=== PATIENT | male | born 1945 | race Caucasian/White ===

== ENCOUNTER 2023-03-23 12:50 | Inpatient (IN) | payer MEDICARE, OTHER ==
[~2023-03-23] VITALS: Ht 170.2 cm; Wt 67.7 kg
[2023-03-23 13:47] LABS: BASOPHILS % (AUTO) 0.3 % (0.0-2.0); EOSINOPHILS # (AUTO) 0.3 K/uL (0.0-0.7); EOSINOPHILS % (AUTO) 2.6 % (0.0-6.0); HEMATOCRIT 22 % (39-51); LYMPHOCYTES # (AUTO) 1.5 K/uL (0.8-4.8); MEAN CORPUSCULAR HEMOGLOBIN 30 PG (26.0-33.0); MEAN CORPUSCULAR HGB CONC 32 g/dl (31.0-36.0); MEAN CORPUSCULAR VOLUME 96 fL (80-96); MONOCYTES # (AUTO) 0.8 K/uL (0.1-1.30); MONOCYTES % (AUTO) 7.3 % (2.0-12.0); NEUTROPHILS # (AUTO) 8.2 K/uL (1.8-8.9); NEUTROPHILS % (AUTO) 75.8 % (43.0-81.0); PLATELET COUNT (AUTO) 398 K/uL (150-450); RED BLOOD CELL COUNT(AUTO) 2.26 MIL/uL (4.5-6.0); WHITE BLOOD COUNT (AUTO) 10.9 K/uL (4.3-11.0)
[2023-03-23 13:49] LABS: HEMOGLOBIN 6.8 g/dL (13.5-17.5)
[2023-03-23 13:57] LABS: CALCIUM, SERUM 10.3 mg/dL (8.5-10.1); CREATININE 0.9 mg/dL (0.6-1.3); POTASSIUM 3.8 mmol/L (3.5-5.1)
[2023-03-23] MEDS ORDERED: ASCO500L2 GT (14:09)
[2023-03-23] MEDS ORDERED: NUT.237L31 GT (14:09)
[2023-03-23] MEDS ORDERED: PETR113O TP (14:09)
[2023-03-23] MEDS ORDERED: MULT-213 GT (14:09)
[2023-03-23] MEDS ORDERED: MAGN400O6 GT (14:09)
[2023-03-23] MEDS ORDERED: METO-295 GT (14:09)
[2023-03-23] MEDS ORDERED: GUAN1TAB GT (14:09)
[2023-03-23] MEDS ORDERED: ACET-868 GT (14:09)
[2023-03-23] MEDS ORDERED: EPOE1VIA7 SQ (14:09)
[2023-03-23] MEDS ORDERED: DOCU100T2 GT (14:09)
[2023-03-23] MEDS ORDERED: TAMS-12 GT (14:09)
[2023-03-23] MEDS ORDERED: ALBU2.5V38 IH ×2 (14:09)
[2023-03-23] MEDS ORDERED: FERR300L GT (14:09)
[2023-03-23] MEDS ORDERED: CLOZ50TA GT (14:09)
[2023-03-23] MEDS ORDERED: FOLI0.8T3 GT (14:09)
[2023-03-23] MEDS ORDERED: BUDE0.5A4 IH (14:09)
[2023-03-23] MEDS ORDERED: FINA5TAB4 GT (14:09)
[2023-03-23] MEDS ORDERED: CLON0.1T GT (14:09)
[2023-03-23] MEDS ORDERED: CRAN3875 GT (14:09)
[2023-03-23] MEDS ORDERED: VALP250S4 GT (14:09)
[2023-03-23] MEDS ORDERED: CHOL500062 GT (14:09)
[2023-03-23] MEDS ORDERED: ACET-2605 GT (14:09)
[2023-03-23] MEDS ORDERED: LISI10TA29 GT (14:09)
[2023-03-23] MEDS ORDERED: SERT50TA12 GT (14:09)
[2023-03-23] MEDS ORDERED: NA P133E RC (14:09)
[2023-03-23] MEDS ORDERED: CHLO473M5 MM (14:09)
[2023-03-23] MEDS ORDERED: MAGN400T8 GT (14:09)
[2023-03-23] MEDS ORDERED: SITA100T GT (14:09)
[2023-03-23] MEDS ORDERED: AMIN30LI66 GT (14:09)
[2023-03-23] MEDS ORDERED: DEUT12TA GT (14:09)
[2023-03-23] MEDS ORDERED: BISA10SU11 RC (14:09)
[2023-03-23] MEDS ORDERED: ALBUTEROL FS 2.5 MG/3 ML VIAL.NEB IH PRN (14:30)
[2023-03-23] MEDS ORDERED: IV NS 0.9% 1,000 ML IV PRN (14:30)
[2023-03-23] MEDS ORDERED: ZOLPIDEM TARTRATE 5 MG TABLET PO PRN (14:30)
[2023-03-23] MEDS ORDERED: MAGNESIUM HYDROXIDE 30 ML UDC PO PRN (14:30)
[2023-03-23] MEDS ORDERED: CLONIDINE HCL 0.1 MG TABLET GT PRN (14:30)
[2023-03-23] MEDS ORDERED: MAG HYDROX/AL HYDROX/SIMETH 30 ML UDC PO PRN (14:30)
[2023-03-23] MEDS ORDERED: Z GUARD REMEDY 4 OZ OINT TP PRN (14:30)
[2023-03-23] MEDS ORDERED: DEXTROSE 50%-WATER 50 ML DISP.SYRIN IV PRN (14:30)
[2023-03-23] MEDS: EPOETIN ALFA (10,000 UNIT) 10,000 UNIT/ML VIAL SQ SCH (15:00)
[2023-03-23] MEDS ORDERED: Medication Not On Formulary EA (Deutetrabenazine (Austedo) 24 MG) GT SCH (17:00)
[2023-03-23] MEDS ORDERED: Medication Not On Formulary EA (Cran/Vitc/Mannose/Inulin/Brom (Uti-Stat Liquid) 30 ML) GT SCH (18:00)
[2023-03-23] MEDS: BLOOD SUGAR DIAGNOSTIC 1 EACH STRIP IN SCH (18:00)
[2023-03-23] MEDS: BUDESONIDE RESPULE INH 0.5 MG/2 ML AMPUL.NEB IH SCH (19:30)
[2023-03-23 20:57] LABS: BAND % (MANUAL) 8 % (0.0-5.0); EOSINOPHILS % (MANUAL) 2 % (0-4); LYMPHOCYTES % (MANUAL) 17 % (16-48); MONOCYTES % (MANUAL) 3 % (0-11.0); NEUTROPHILS % (MANUAL) 70 (42-76); PLATELET ESTIMATE ADEQUATE
[2023-03-23] MEDS: VALPROIC ACID 250 MG/5 ML UDC GT SCH (21:00)
[2023-03-23] MEDS: PANTOPRAZOLE 40 MG VIAL IV SCH (21:00)
[2023-03-23] MEDS: TAMSULOSIN 0.4 MG CAP.SR.24H GT SCH (22:00)
[2023-03-23] MEDS: FINASTERIDE (5 MG) 5 MG TABLET GT SCH (22:00)
[2023-03-23] MEDS: CLOZAPINE 100 MG TABLET GT SCH (22:00)
[2023-03-23 23:30] VITALS: BP 98/59; TEMP 97.9; O2SAT 100
[2023-03-24] VITALS (8 sets, daily range): BP systolic 100–127; BP diastolic 47–72; TEMP 98.1–99.3; O2SAT 100
[2023-03-24 00:06] LABS: HEMOGLOBIN 6.5 g/dL (13.5-17.5)
[2023-03-24] MEDS: BLOOD SUGAR DIAGNOSTIC 1 EACH STRIP IN SCH ×5 (00:58→23:31)
[2023-03-24] MEDS ORDERED: IV D5/ 0.9% NACL 1,000 ML IV ONE (01:00)
[2023-03-24] MEDS: CHLORHEXIDINE GLUCONATE 15 ML UDC MM SCH ×3 (01:02→20:33)
[2023-03-24] MEDS: ALBUTEROL FS 2.5 MG/3 ML VIAL.NEB IH SCH ×4 (01:41→20:06)
[2023-03-24 06:53] LABS: BASOPHILS % (AUTO) 0.3 % (0.0-2.0); EOSINOPHILS # (AUTO) 0.1 K/uL (0.0-0.7); EOSINOPHILS % (AUTO) 0.8 % (0.0-6.0); HEMATOCRIT 29 % (39-51); HEMOGLOBIN 9.1 g/dL (13.5-17.5); LYMPHOCYTES # (AUTO) 1.1 K/uL (0.8-4.8); LYMPHOCYTES % (AUTO) 7.1 % (20.0-44.0); MEAN CORPUSCULAR HEMOGLOBIN 30 PG (26.0-33.0); MEAN CORPUSCULAR HGB CONC 32 g/dl (31.0-36.0); MEAN CORPUSCULAR VOLUME 94 fL (80-96); MONOCYTES % (AUTO) 6.3 % (2.0-12.0); NEUTROPHILS # (AUTO) 12.9 K/uL (1.8-8.9); NEUTROPHILS % (AUTO) 85.5 % (43.0-81.0); PLATELET COUNT (AUTO) 457 K/uL (150-450); RED BLOOD CELL COUNT(AUTO) 3.09 MIL/uL (4.5-6.0); RED CELL DISTRIBUTION WIDTH 16.6 % (11.5-15.0)
[2023-03-24 07:20] LABS: OCCULT BLOOD STOOL NEGATIVE (NEGATIVE)
[2023-03-24 07:45] LABS: ALBUMIN 1.8 g/dL (3.4-5.0); BILIRUBIN,TOTAL 0.2 mg/dL (0.2-1.0); CALCIUM, SERUM 10.1 mg/dL (8.5-10.1); CREATININE 0.9 mg/dL (0.6-1.3); MAGNESIUM 2.5 mg/dL (1.8-2.4); PHOSPHORUS 3.5 mg/dL (2.5-4.9); POTASSIUM 3.4 mmol/L (3.5-5.1); TOTAL PROTEIN, SERUM 8.9 g/dL (6.4-8.2)
[2023-03-24] MEDS ORDERED: GLUCERNA 1.2 1,000 ML BOTTLE NG PRN ×2 (08:30→16:00)
[2023-03-24] MEDS: BUDESONIDE RESPULE INH 0.5 MG/2 ML AMPUL.NEB IH SCH ×2 (08:31→20:06)
[2023-03-24] MEDS: FOLIC ACID 1 MG TABLET GT SCH (08:34)
[2023-03-24] MEDS: FERROUS SULFATE UDC 300 MG/5 ML UDC GT SCH ×4 (08:34→16:13)
[2023-03-24] MEDS: VALPROIC ACID 250 MG/5 ML UDC GT SCH ×2 (08:35→20:33)
[2023-03-24] MEDS: CHOLECALCIFEROL 1,000 UNIT TABLET (VIT D3) GT SCH (08:35)
[2023-03-24] MEDS: PANTOPRAZOLE 40 MG VIAL IV SCH (08:35)
[2023-03-24] MEDS: ASCORBIC ACID 500 MG TABLET GT SCH ×3 (08:35→16:13)
[2023-03-24] MEDS: LISINOPRIL (10MG) 10 MG TABLET GT SCH (08:35)
[2023-03-24] MEDS: CLOTRIMAZOLE 1% 15 GM TUBE TP SCH ×2 (08:37→16:13)
[2023-03-24] MEDS ORDERED: POTASSIUM CHLORIDE 20 MEQ POWDER PACKET GT ONE (10:00)
[2023-03-24] MEDS: ACETAMINOPHEN 325 MG TABLET PO PRN (10:27)
[2023-03-24] MEDS ORDERED: ACETAMINOPHEN 650 MG/SUPP.RECT RC PRN (11:30)
[2023-03-24] MEDS: ONDANSETRON HCL/PF 4 MG/2 ML VIAL IVP PRN (12:54)
[2023-03-24] MEDS: LINAGLIPTIN 5 MG TABLET GT SCH ×2 (17:32)
[2023-03-24] MEDS: DOCUSATE SODIUM LIQ 100 MG/10 ML UDC GT SCH ×2 (17:32)
[2023-03-24] MEDS: MULTIVIT W/MINERALS 1 TAB TABLET GT SCH ×2 (17:33)
[2023-03-24] MEDS: PROSOURCE DIETARY LIQUID 30 ML LIQUID GT SCH ×2 (17:33)
[2023-03-24] MEDS: PANTOPRAZOLE 40 MG/PACK PACK GT SCH (20:34)
[2023-03-24] MEDS: TAMSULOSIN 0.4 MG CAP.SR.24H GT SCH (21:13)
[2023-03-24] MEDS: FINASTERIDE (5 MG) 5 MG TABLET GT SCH (21:14)
[2023-03-24] MEDS: CLOZAPINE 100 MG TABLET GT SCH (21:14)
[2023-03-24] MEDS: INSULIN REGULAR, HUMAN 100 UNIT/ML 3 ML VIAL SQ PRN (23:31)
[2023-03-25] VITALS: BP 105/52; TEMP 99; O2SAT 100
[2023-03-25] MEDS: ALBUTEROL FS 2.5 MG/3 ML VIAL.NEB IH SCH ×4 (01:33→20:12)
[2023-03-25 04:00] VITALS: BP 109/62; TEMP 98.7; O2SAT 100
[2023-03-25] MEDS: BLOOD SUGAR DIAGNOSTIC 1 EACH STRIP IN SCH ×3 (06:02→17:10)
[2023-03-25] MEDS: INSULIN REGULAR, HUMAN 100 UNIT/ML 3 ML VIAL SQ PRN ×3 (06:05→17:13)
[2023-03-25 06:45] LABS: BASOPHILS % (AUTO) 0.1 % (0.0-2.0); EOSINOPHILS # (AUTO) 0.2 K/uL (0.0-0.7); EOSINOPHILS % (AUTO) 1.2 % (0.0-6.0); HEMATOCRIT 24 % (39-51); HEMOGLOBIN 7.6 g/dL (13.5-17.5); LYMPHOCYTES # (AUTO) 1.3 K/uL (0.8-4.8); MEAN CORPUSCULAR HEMOGLOBIN 30 PG (26.0-33.0); MEAN CORPUSCULAR HGB CONC 32 g/dl (31.0-36.0); MEAN CORPUSCULAR VOLUME 94 fL (80-96); MONOCYTES # (AUTO) 1.1 K/uL (0.1-1.30); MONOCYTES % (AUTO) 6.7 % (2.0-12.0); NEUTROPHILS # (AUTO) 13.7 K/uL (1.8-8.9); PLATELET COUNT (AUTO) 363 K/uL (150-450); RED BLOOD CELL COUNT(AUTO) 2.54 MIL/uL (4.5-6.0); RED CELL DISTRIBUTION WIDTH 16.6 % (11.5-15.0); WHITE BLOOD COUNT (AUTO) 16.3 K/uL (4.3-11.0)
[2023-03-25 06:54] LABS: CALCIUM, SERUM 9.7 mg/dL (8.5-10.1); CREATININE 0.9 mg/dL (0.6-1.3); POTASSIUM 3.3 mmol/L (3.5-5.1)
[2023-03-25 06:55] LABS: OCCULT BLOOD STOOL NEGATIVE (NEGATIVE)
[2023-03-25] MEDS: BUDESONIDE RESPULE INH 0.5 MG/2 ML AMPUL.NEB IH SCH ×2 (07:53→20:12)
[2023-03-25 08:00] VITALS: BP 91/61; TEMP 100; O2SAT 98
[2023-03-25] MEDS: FOLIC ACID 1 MG TABLET GT SCH (08:13)
[2023-03-25] MEDS: PANTOPRAZOLE 40 MG/PACK PACK GT SCH ×2 (08:13→21:38)
[2023-03-25] MEDS: VALPROIC ACID 250 MG/5 ML UDC GT SCH ×2 (08:13→21:37)
[2023-03-25] MEDS: ASCORBIC ACID 500 MG TABLET GT SCH ×2 (08:13→16:06)
[2023-03-25] MEDS: CHLORHEXIDINE GLUCONATE 15 ML UDC MM SCH ×2 (08:13→21:38)
[2023-03-25] MEDS: CHOLECALCIFEROL 1,000 UNIT TABLET (VIT D3) GT SCH (08:13)
[2023-03-25] MEDS: LISINOPRIL (10MG) 10 MG TABLET GT SCH (08:15)
[2023-03-25] MEDS: FERROUS SULFATE UDC 300 MG/5 ML UDC GT SCH ×3 (08:16→16:06)
[2023-03-25] MEDS: ACETAMINOPHEN 325 MG TABLET PO PRN (08:16)
[2023-03-25] MEDS: CLOTRIMAZOLE 1% 15 GM TUBE TP SCH ×2 (08:17→16:07)
[2023-03-25 10:48] LABS: APPEARANCE,URINE CLEAR (CLEAR); BILIRUBIN,URINE NEGATIVE (NEGATIVE); BLOOD, URINE NEGATIVE Ery/uL (NEGATIVE); COLOR,URINE YELLOW (YELLOW); KETONES,URINE TRACE mg/dL (NEGATIVE); LEUKOCYTE ESTERASE ,URINE NEGATIVE (NEGATIVE); NITRITE, URINE NEGATIVE (NEGATIVE); PH,URINE 5.5 (5.0-8.0); PROTEIN,URINE TRACE mg/dl (NEGATIVE); UGLUCOSE NEGATIVE (NEGATIVE); UROBILINOGEN,URINE 0.2 EU/dL (0.2)
[2023-03-25 10:57] LABS: ADD URINE CULTURE NO; BACTERIA,URINE Rare /HPF (None Seen); RBC,URINE 0-2 /HPF (0-2); SQUAMOUS EPITHELIAL CELL,UR Rare /HPF (None Seen); WBC,URINE 0-2 /HPF (0-3)
[2023-03-25] MEDS ORDERED: POTASSIUM CHLORIDE 20 MEQ POWDER PACKET GT ONE (11:00)
[2023-03-25] MEDS: CEFTRIAXONE 1 G in IV D5W 50 ML IV SCH (11:14)
[2023-03-25 12:00] VITALS: BP 86/53; TEMP 98.1; O2SAT 98
[2023-03-25] MEDS ORDERED: IV 1/2NS 1000 ML 1,000 ML IV PRN (15:30)
[2023-03-25 16:00] VITALS: BP 105/62; TEMP 98.6; O2SAT 100
[2023-03-25] MEDS: EPOETIN ALFA (10,000 UNIT) 10,000 UNIT/ML VIAL SQ SCH (16:37)
[2023-03-25] MEDS: MULTIVIT W/MINERALS 1 TAB TABLET GT SCH (17:10)
[2023-03-25] MEDS: DOCUSATE SODIUM LIQ 100 MG/10 ML UDC GT SCH (17:10)
[2023-03-25] MEDS: LINAGLIPTIN 5 MG TABLET GT SCH (17:10)
[2023-03-25] MEDS: PROSOURCE DIETARY LIQUID 30 ML LIQUID GT SCH (17:14)
[2023-03-25] MEDS: CLOZAPINE 100 MG TABLET GT SCH (21:37)
[2023-03-25] MEDS: TAMSULOSIN 0.4 MG CAP.SR.24H GT SCH (21:39)
[2023-03-25] MEDS: FINASTERIDE (5 MG) 5 MG TABLET GT SCH (21:39)
[2023-03-26] VITALS: BP 95/55; TEMP 98.8; O2SAT 98
[2023-03-26] MEDS: INSULIN REGULAR, HUMAN 100 UNIT/ML 3 ML VIAL SQ PRN ×3 (00:39→17:26)
[2023-03-26] MEDS: BLOOD SUGAR DIAGNOSTIC 1 EACH STRIP IN SCH ×4 (00:39→17:25)
[2023-03-26] MEDS: ALBUTEROL FS 2.5 MG/3 ML VIAL.NEB IH SCH ×4 (02:17→19:34)
[2023-03-26 04:00] VITALS: BP 98/57; TEMP 98.4; O2SAT 98
[2023-03-26 07:40] LABS: BASOPHILS % (AUTO) 0.2 % (0.0-2.0); EOSINOPHILS # (AUTO) 0.2 K/uL (0.0-0.7); EOSINOPHILS % (AUTO) 2.2 % (0.0-6.0); HEMATOCRIT 24 % (39-51); HEMOGLOBIN 7.2 g/dL (13.5-17.5); LYMPHOCYTES # (AUTO) 1.4 K/uL (0.8-4.8); LYMPHOCYTES % (AUTO) 12.1 % (20.0-44.0); MEAN CORPUSCULAR HEMOGLOBIN 29 PG (26.0-33.0); MEAN CORPUSCULAR HGB CONC 30 g/dl (31.0-36.0); MEAN CORPUSCULAR VOLUME 94 fL (80-96); MONOCYTES # (AUTO) 0.9 K/uL (0.1-1.30); NEUTROPHILS # (AUTO) 8.7 K/uL (1.8-8.9); NEUTROPHILS % (AUTO) 77.5 % (43.0-81.0); PLATELET COUNT (AUTO) 360 K/uL (150-450); RED BLOOD CELL COUNT(AUTO) 2.51 MIL/uL (4.5-6.0); RED CELL DISTRIBUTION WIDTH 16.6 % (11.5-15.0); WHITE BLOOD COUNT (AUTO) 11.3 K/uL (4.3-11.0)
[2023-03-26 08:00] VITALS: BP 99/61; TEMP 98.1; O2SAT 100
[2023-03-26 08:01] LABS: CALCIUM, SERUM 9.4 mg/dL (8.5-10.1); CREATININE 0.8 mg/dL (0.6-1.3); POTASSIUM 3.3 mmol/L (3.5-5.1)
[2023-03-26] MEDS: BUDESONIDE RESPULE INH 0.5 MG/2 ML AMPUL.NEB IH SCH ×2 (08:01→19:34)
[2023-03-26] MEDS: CHOLECALCIFEROL 1,000 UNIT TABLET (VIT D3) GT SCH (08:16)
[2023-03-26] MEDS: CHLORHEXIDINE GLUCONATE 15 ML UDC MM SCH ×2 (08:16→21:19)
[2023-03-26] MEDS: PANTOPRAZOLE 40 MG/PACK PACK GT SCH ×2 (08:16→21:20)
[2023-03-26] MEDS: FOLIC ACID 1 MG TABLET GT SCH (08:16)
[2023-03-26] MEDS: ASCORBIC ACID 500 MG TABLET GT SCH ×2 (08:16→16:17)
[2023-03-26] MEDS: FERROUS SULFATE UDC 300 MG/5 ML UDC GT SCH ×3 (08:17→16:17)
[2023-03-26] MEDS: VALPROIC ACID 250 MG/5 ML UDC GT SCH ×2 (08:17→21:19)
[2023-03-26] MEDS: CLOTRIMAZOLE 1% 15 GM TUBE TP SCH ×2 (08:18→16:19)
[2023-03-26] MEDS: LISINOPRIL (10MG) 10 MG TABLET GT SCH (08:19)
[2023-03-26] MEDS ORDERED: POTASSIUM CHLORIDE 20 MEQ POWDER PACKET GT ONE (09:30)
[2023-03-26] MEDS ORDERED: POTASSIUM CHLORIDE 20 MEQ POWDER PACKET GT SCH (09:30)
[2023-03-26] MEDS: CEFTRIAXONE 1 G in IV D5W 50 ML IV SCH (10:39)
[2023-03-26 12:00] VITALS: BP 95/52; TEMP 98.8; O2SAT 98
[2023-03-26 16:00] VITALS: BP 90/52; TEMP 99.1; O2SAT 97
[2023-03-26] MEDS: ACETAMINOPHEN 325 MG TABLET PO PRN (17:13)
[2023-03-26] MEDS: DOCUSATE SODIUM LIQ 100 MG/10 ML UDC GT SCH (17:13)
[2023-03-26] MEDS: MULTIVIT W/MINERALS 1 TAB TABLET GT SCH (17:14)
[2023-03-26] MEDS: LINAGLIPTIN 5 MG TABLET GT SCH (17:14)
[2023-03-26] MEDS: PROSOURCE DIETARY LIQUID 30 ML LIQUID GT SCH (17:25)
[2023-03-26 20:00] VITALS: BP 112/62; TEMP 98.1; O2SAT 100
[2023-03-26] MEDS: CLOZAPINE 100 MG TABLET GT SCH (21:20)
[2023-03-26] MEDS: TAMSULOSIN 0.4 MG CAP.SR.24H GT SCH (21:20)
[2023-03-26] MEDS: FINASTERIDE (5 MG) 5 MG TABLET GT SCH (21:20)
[2023-03-26] MEDS: GLUCERNA 1.2 1,000 ML BOTTLE NG PRN (21:26)
[2023-03-27] VITALS (7 sets, daily range): BP systolic 103–126; BP diastolic 62–76; TEMP 97.6–98.8; O2SAT 86–100
[2023-03-27] MEDS: BLOOD SUGAR DIAGNOSTIC 1 EACH STRIP IN SCH ×4 (00:35→17:27)
[2023-03-27] MEDS: ALBUTEROL FS 2.5 MG/3 ML VIAL.NEB IH SCH ×4 (01:12→20:17)
[2023-03-27 08:02] LABS: BASOPHILS % (AUTO) 0.2 % (0.0-2.0); EOSINOPHILS # (AUTO) 0.3 K/uL (0.0-0.7); EOSINOPHILS % (AUTO) 3.3 % (0.0-6.0); HEMATOCRIT 24 % (39-51); HEMOGLOBIN 7.7 g/dL (13.5-17.5); LYMPHOCYTES # (AUTO) 1.1 K/uL (0.8-4.8); LYMPHOCYTES % (AUTO) 12.9 % (20.0-44.0); MEAN CORPUSCULAR HEMOGLOBIN 30 PG (26.0-33.0); MEAN CORPUSCULAR HGB CONC 32 g/dl (31.0-36.0); MEAN CORPUSCULAR VOLUME 95 fL (80-96); MONOCYTES # (AUTO) 0.4 K/uL (0.1-1.30); MONOCYTES % (AUTO) 5.3 % (2.0-12.0); NEUTROPHILS # (AUTO) 6.6 K/uL (1.8-8.9); NEUTROPHILS % (AUTO) 78.3 % (43.0-81.0); PLATELET COUNT (AUTO) 338 K/uL (150-450); RED BLOOD CELL COUNT(AUTO) 2.53 MIL/uL (4.5-6.0); RED CELL DISTRIBUTION WIDTH 16.8 % (11.5-15.0); WHITE BLOOD COUNT (AUTO) 8.5 K/uL (4.3-11.0)
[2023-03-27] MEDS: BUDESONIDE RESPULE INH 0.5 MG/2 ML AMPUL.NEB IH SCH ×2 (08:14→20:17)
[2023-03-27 08:42] LABS: CALCIUM, SERUM 9.3 mg/dL (8.5-10.1); CREATININE 0.8 mg/dL (0.6-1.3); POTASSIUM 3.9 mmol/L (3.5-5.1)
[2023-03-27] MEDS: FOLIC ACID 1 MG TABLET GT SCH (08:43)
[2023-03-27] MEDS: ASCORBIC ACID 500 MG TABLET GT SCH ×2 (08:43→17:26)
[2023-03-27] MEDS: CHLORHEXIDINE GLUCONATE 15 ML UDC MM SCH ×2 (08:43→20:42)
[2023-03-27] MEDS: VALPROIC ACID 250 MG/5 ML UDC GT SCH ×2 (08:43→20:42)
[2023-03-27] MEDS: FERROUS SULFATE UDC 300 MG/5 ML UDC GT SCH ×3 (08:43→17:25)
[2023-03-27] MEDS: CHOLECALCIFEROL 1,000 UNIT TABLET (VIT D3) GT SCH (08:44)
[2023-03-27] MEDS: PANTOPRAZOLE 40 MG/PACK PACK GT SCH ×2 (08:44→20:42)
[2023-03-27] MEDS: LISINOPRIL (10MG) 10 MG TABLET GT SCH (08:44)
[2023-03-27] MEDS: CLOTRIMAZOLE 1% 15 GM TUBE TP SCH ×2 (08:50→17:28)
[2023-03-27] MEDS: CEFTRIAXONE 1 G in IV D5W 50 ML IV SCH (11:09)
[2023-03-27] MEDS: ONDANSETRON HCL/PF 4 MG/2 ML VIAL IVP PRN (13:37)
[2023-03-27] MEDS: LINAGLIPTIN 5 MG TABLET GT SCH (17:26)
[2023-03-27] MEDS: MULTIVIT W/MINERALS 1 TAB TABLET GT SCH (17:26)
[2023-03-27] MEDS: GLUCERNA 1.2 1,000 ML BOTTLE NG PRN (17:26)
[2023-03-27] MEDS: DOCUSATE SODIUM LIQ 100 MG/10 ML UDC GT SCH (17:26)
[2023-03-27] MEDS: PROSOURCE DIETARY LIQUID 30 ML LIQUID GT SCH (17:28)
[2023-03-27] MEDS: CLOZAPINE 100 MG TABLET GT SCH (22:51)
[2023-03-27] MEDS: FINASTERIDE (5 MG) 5 MG TABLET GT SCH (22:51)
[2023-03-27] MEDS: TAMSULOSIN 0.4 MG CAP.SR.24H GT SCH (22:51)
[2023-03-28] VITALS: BP 109/67; TEMP 98.1; O2SAT 98
[2023-03-28] MEDS: BLOOD SUGAR DIAGNOSTIC 1 EACH STRIP IN SCH ×4 (00:32→17:07)
[2023-03-28] MEDS: INSULIN REGULAR, HUMAN 100 UNIT/ML 3 ML VIAL SQ PRN ×2 (00:33→06:27)
[2023-03-28] MEDS: ALBUTEROL FS 2.5 MG/3 ML VIAL.NEB IH SCH ×3 (01:38→13:54)
[2023-03-28] MEDS: ONDANSETRON HCL/PF 4 MG/2 ML VIAL IVP PRN (03:14)
[2023-03-28 04:00] VITALS: BP 104/62; TEMP 98.1; O2SAT 97
[2023-03-28 08:00] VITALS: BP 106/60; TEMP 98.6; O2SAT 100
[2023-03-28] MEDS: BUDESONIDE RESPULE INH 0.5 MG/2 ML AMPUL.NEB IH SCH (08:02)
[2023-03-28] MEDS: LISINOPRIL (10MG) 10 MG TABLET GT SCH (09:00)
[2023-03-28] MEDS: CHLORHEXIDINE GLUCONATE 15 ML UDC MM SCH (09:13)
[2023-03-28] MEDS: VALPROIC ACID 250 MG/5 ML UDC GT SCH (09:13)
[2023-03-28] MEDS: FERROUS SULFATE UDC 300 MG/5 ML UDC GT SCH ×3 (09:13→17:06)
[2023-03-28] MEDS: CHOLECALCIFEROL 1,000 UNIT TABLET (VIT D3) GT SCH (09:14)
[2023-03-28] MEDS: ASCORBIC ACID 500 MG TABLET GT SCH ×2 (09:14→17:07)
[2023-03-28] MEDS: PANTOPRAZOLE 40 MG/PACK PACK GT SCH (09:14)
[2023-03-28] MEDS: CLOTRIMAZOLE 1% 15 GM TUBE TP SCH ×2 (09:14→17:09)
[2023-03-28] MEDS: FOLIC ACID 1 MG TABLET GT SCH (09:14)
[2023-03-28] MEDS: CEFTRIAXONE 1 G in IV D5W 50 ML IV SCH (11:28)
[2023-03-28] MEDS: GLUCERNA 1.2 1,000 ML BOTTLE NG PRN (11:29)
[2023-03-28 12:00] VITALS: BP 114/64; TEMP 98.4; O2SAT 100
[2023-03-28] MEDS ORDERED: NUT.237L45 NG (12:02)
[2023-03-28] MEDS: EPOETIN ALFA (10,000 UNIT) 10,000 UNIT/ML VIAL SQ SCH (15:16)
[2023-03-28 15:22] LABS: BASOPHILS % (AUTO) 0.2 % (0.0-2.0); EOSINOPHILS # (AUTO) 0.3 K/uL (0.0-0.7); EOSINOPHILS % (AUTO) 3.3 % (0.0-6.0); HEMATOCRIT 23 % (39-51); HEMOGLOBIN 7.2 g/dL (13.5-17.5); LYMPHOCYTES % (AUTO) 13.4 % (20.0-44.0); MEAN CORPUSCULAR HEMOGLOBIN 29 PG (26.0-33.0); MEAN CORPUSCULAR HGB CONC 31 g/dl (31.0-36.0); MEAN CORPUSCULAR VOLUME 94 fL (80-96); MONOCYTES # (AUTO) 0.4 K/uL (0.1-1.30); MONOCYTES % (AUTO) 4.7 % (2.0-12.0); NEUTROPHILS # (AUTO) 6.1 K/uL (1.8-8.9); NEUTROPHILS % (AUTO) 78.4 % (43.0-81.0); PLATELET COUNT (AUTO) 316 K/uL (150-450); RED BLOOD CELL COUNT(AUTO) 2.46 MIL/uL (4.5-6.0); RED CELL DISTRIBUTION WIDTH 16.5 % (11.5-15.0); WHITE BLOOD COUNT (AUTO) 7.8 K/uL (4.3-11.0)
[2023-03-28 15:42] LABS: ALANINE AMINOTRANSFERASE 9 U/L (12-78); ALKALINE PHOSPHATASE 76 U/L (46-116); ASPARTATE AMINOTRANSFERASE 11 U/L (15-37); BILIRUBIN,TOTAL 0.1 mg/dL (0.2-1.0); CALCIUM, SERUM 8.7 mg/dL (8.5-10.1); CARBON DIOXIDE 29 mmol/L (21-32); CHLORIDE 107 mmol/L (98-107); CREATININE 0.8 mg/dL (0.6-1.3); GLUCOSE 113 mg/dL (74-106); MAGNESIUM 2.2 mg/dL (1.8-2.4); PHOSPHORUS 4.5 mg/dL (2.5-4.9); POTASSIUM 4.4 mmol/L (3.5-5.1); SODIUM SERUM 141 mmol/L (136-145); TOTAL PROTEIN, SERUM 6.9 g/dL (6.4-8.2); UREA NITROGEN, BLOOD 20 mg/dL (7-18)
[2023-03-28 15:44] LABS: ALBUMIN 1.4 g/dL (3.4-5.0)
[2023-03-28 16:00] VITALS: BP 113/66; TEMP 99; O2SAT 99
[2023-03-28] MEDS: DOCUSATE SODIUM LIQ 100 MG/10 ML UDC GT SCH (17:06)
[2023-03-28] MEDS: LINAGLIPTIN 5 MG TABLET GT SCH ×2 (17:07→17:10)
[2023-03-28] MEDS: MULTIVIT W/MINERALS 1 TAB TABLET GT SCH (17:07)
[2023-03-28] MEDS: PROSOURCE DIETARY LIQUID 30 ML LIQUID GT SCH (17:09)
[2023-03-29 01:24] LABS: BASOPHILS % (MANUAL) 0 % (0.0-2.0); EOSINOPHILS % (MANUAL) 3 % (0-4); LYMPHOCYTES % (MANUAL) 11 % (16-48); MONOCYTES % (MANUAL) 5 % (0-11.0); NEUTROPHILS % (MANUAL) 81 (42-76)
[2023-03-29 01:25] LABS: ANISOCYTOSIS 1+; HYPOCHROMASIA 1+; PLATELET ESTIMATE ADEQUATE; STOMATOCYTES 1+
== END 2023-03-28 18:23 | DRG 689 ==
LOC: ER 13:03 → TRANSITION 15:32 → TELE1 22:27
PROVIDERS: ADMIT Nurse Practitioner Acute Care; ATTEND Nurse Practitioner Acute Care
PROC: 5A1955Z Respiratory Ventilation, Greater than 96 Consecutive Hours (ICD-10-PCS; principal; 2023-03-23)
PROC: 30233N1 Transfusion of Nonautologous Red Blood Cells into Peripheral Vein, Percutaneous Approach (ICD-10-PCS; 2023-03-24)
DX: N39.0 Urinary tract infection, site not specified (principal); G93.41 Metabolic encephalopathy; J96.10 Chronic respiratory failure, unspecified whether with hypoxia or hypercapnia; E87.0 Hyperosmolality and hypernatremia; E87.4 Mixed disorder of acid-base balance; G82.20 Paraplegia, unspecified; Z99.11 Dependence on respirator [ventilator] status; D68.69 Other thrombophilia; F03.93 Unspecified dementia, unspecified severity, with mood disturbance; D63.8 Anemia in other chronic diseases classified elsewhere; E11.9 Type 2 diabetes mellitus without complications; E78.5 Hyperlipidemia, unspecified; E87.6 Hypokalemia; E87.8 Other disorders of electrolyte and fluid balance, not elsewhere classified; F31.9 Bipolar disorder, unspecified; I10 Essential (primary) hypertension; J44.9 Chronic obstructive pulmonary disease, unspecified; K21.9 Gastro-esophageal reflux disease without esophagitis; R13.10 Dysphagia, unspecified; Z79.84 Long term (current) use of oral hypoglycemic drugs; Z86.73 Personal history of transient ischemic attack (TIA), and cerebral infarction without residual deficits; Z93.1 Gastrostomy status; N40.0 Benign prostatic hyperplasia without lower urinary tract symptoms; F39 Unspecified mood [affective] disorder; M89.8X9 Other specified disorders of bone, unspecified site; Z74.01 Bed confinement status; Z79.4 Long term (current) use of insulin; F09 Unspecified mental disorder due to known physiological condition; L89.156 Pressure-induced deep tissue damage of sacral region; L89.896 Pressure-induced deep tissue damage of other site; L89.610 Pressure ulcer of right heel, unstageable; R21 Rash and other nonspecific skin eruption; D72.829 Elevated white blood cell count, unspecified
CPT/HCPCS: 31720; 36415; 71045-TC; 80048-TC; 80053-TC; 81001; 82272-TC; 82962-TC; 83735-TC; 84100-TC; 85025-TC; 85027-TC; 86850-TC; 87086-TC; 94002-TC; 94003-TC; 94760-TC; 94762-TC; 94799-TC; 99082-TC; A4223; A6403; C9113; G0378; J0696; J0885; J1815; J2405; J3490; J7030; J7042; J7050; J7060; P9016